=== PATIENT | female | born 1950 | race Caucasian/White ===

== ENCOUNTER → 2021-12-20 | Outpatient (CLI) | payer OTHER | LOC: MRI 12-14 11:00 | DX: H90.3 Sensorineural hearing loss, bilateral (principal); H93.12 Tinnitus, left ear | CPT/HCPCS: 36415; 70553; 82565; 84520; A9577 ==

== ENCOUNTER → 2022-04-17 | Outpatient (CLI) | payer OTHER | LOC: KOH-I 16:32 | DX: K59.00 Constipation, unspecified (principal) | CPT/HCPCS: 74018 ==

== ENCOUNTER → 2022-04-28 | Outpatient (CLI) | payer OTHER | LOC: US 08:30 | DX: D61.818 Other pancytopenia (principal); K76.0 Fatty (change of) liver, not elsewhere classified | CPT/HCPCS: 76705 ==

== ENCOUNTER → 2022-06-19 | Outpatient (CLI) | payer OTHER ==
[2022-06-19 14:42] LABS: BUN/CREATININE RATIO 20 (0-10)
[2022-06-19 15:04] LABS: HEMOGLOBIN 8.7 gm/dl (12.3-15.3); RED BLOOD COUNT 2.94 M/UL (4.00-5.10)
[2022-06-19 15:06] LABS: WHITE BLOOD COUNT 1.4 K/UL (4.5-11.0)
== END ==
LOC: OPSV 13:00
PROVIDERS: Family Medicine
DX: C92.00 Acute myeloblastic leukemia, not having achieved remission (principal)
CPT/HCPCS: 80053; 85025

== ENCOUNTER → 2022-06-30 | Outpatient (CLI) | payer OTHER ==
[2022-06-30 14:21] LABS: HEMOGLOBIN 11.1 gm/dl (12.3-15.3); RED BLOOD COUNT 3.72 M/UL (4.00-5.10); WHITE BLOOD COUNT 2.2 K/UL (4.5-11.0)
[2022-06-30 15:12] LABS: BUN/CREATININE RATIO 12 (0-10)
== END ==
LOC: LAB 13:45
PROVIDERS: Internal Medicine
DX: C92.00 Acute myeloblastic leukemia, not having achieved remission (principal)
CPT/HCPCS: 80053; 85025

== ENCOUNTER → 2022-07-04 | Outpatient (CLI) | payer OTHER ==
[~2022-07-04] VITALS: Ht 167.6 cm; Wt 78.0 kg
== END ==
LOC: OPSV 10:00
DX: C92.00 Acute myeloblastic leukemia, not having achieved remission (principal)
CPT/HCPCS: 36430; 86850; 86920; J7050; P9040

== ENCOUNTER → 2022-07-05 | Outpatient (CLI) | payer OTHER ==
[2022-07-05 15:25] LABS: HEMOGLOBIN 8.8 gm/dl (12.3-15.3); RED BLOOD COUNT 2.88 M/UL (4.00-5.10); WHITE BLOOD COUNT 7.6 K/UL (4.5-11.0)
[2022-07-05 15:26] LABS: BUN/CREATININE RATIO 14 (0-10)
== END ==
LOC: OPSV 13:52
PROVIDERS: Family Medicine
DX: C92.00 Acute myeloblastic leukemia, not having achieved remission (principal)
CPT/HCPCS: 36415; 80053; 85025

== ENCOUNTER → 2022-07-07 | Outpatient (CLI) | payer OTHER ==
[2022-07-07 11:07] LABS: HEMOGLOBIN 8.2 gm/dl (12.3-15.3); RED BLOOD COUNT 2.73 M/UL (4.00-5.10); WHITE BLOOD COUNT 6.5 K/UL (4.5-11.0)
== END ==
LOC: OPSV 09:00
PROVIDERS: Family Medicine
DX: C92.00 Acute myeloblastic leukemia, not having achieved remission (principal)
CPT/HCPCS: 85025

== ENCOUNTER → 2022-07-10 | Outpatient (CLI) | payer OTHER ==
[2022-07-10 14:33] LABS: HEMOGLOBIN 8.7 gm/dl (12.3-15.3); RED BLOOD COUNT 2.8 M/UL (4.00-5.10); WHITE BLOOD COUNT 7.7 K/UL (4.5-11.0)
== END ==
LOC: OPSV 08:00
PROVIDERS: Family Medicine
DX: C92.00 Acute myeloblastic leukemia, not having achieved remission (principal)
CPT/HCPCS: 36415; 85025; 93005

== ENCOUNTER → 2022-07-12 | Outpatient (CLI) | payer OTHER ==
[2022-07-12 14:31] LABS: HEMOGLOBIN 8.9 gm/dl (12.3-15.3); RED BLOOD COUNT 2.86 M/UL (4.00-5.10); WHITE BLOOD COUNT 6.3 K/UL (4.5-11.0)
[2022-07-12 14:48] LABS: BUN/CREATININE RATIO 15 (0-10)
== END ==
LOC: OPSV 08:00
PROVIDERS: Family Medicine
DX: C92.00 Acute myeloblastic leukemia, not having achieved remission (principal); M25.476 Effusion, unspecified foot
CPT/HCPCS: 80053; 84550; 85025

== ENCOUNTER → 2022-07-14 | Outpatient (CLI) | payer OTHER ==
[2022-07-14 07:50] LABS: HEMOGLOBIN 8.7 gm/dl (12.3-15.3); RED BLOOD COUNT 2.88 M/UL (4.00-5.10); WHITE BLOOD COUNT 7.6 K/UL (4.5-11.0)
== END ==
LOC: OPSV 07-07 13:00 → LAB 07:03
PROVIDERS: Family Medicine
DX: C92.00 Acute myeloblastic leukemia, not having achieved remission (principal)
CPT/HCPCS: 36415; 85025

== ENCOUNTER → 2022-07-17 | Outpatient (CLI) | payer OTHER ==
[2022-07-17 10:45] LABS: HEMOGLOBIN 9.3 gm/dl (12.3-15.3); RED BLOOD COUNT 2.9 M/UL (4.00-5.10); WHITE BLOOD COUNT 7.7 K/UL (4.5-11.0)
[2022-07-17 11:01] LABS: BUN/CREATININE RATIO 14 (0-10)
== END ==
LOC: LAB 10:16
PROVIDERS: Internal Medicine Medical Oncology
DX: Z53.9 Procedure and treatment not carried out, unspecified reason (principal)
CPT/HCPCS: 36415; 80053; 85025

== ENCOUNTER → 2022-07-31 | Outpatient (CLI) | payer OTHER ==
[~2022-07-31] VITALS: Ht 167.6 cm; Wt 80.7 kg
[2022-07-31 14:25] LABS: HEMOGLOBIN 7.1 gm/dl (12.3-15.3); RED BLOOD COUNT 2.18 M/UL (4.00-5.10); WHITE BLOOD COUNT 4.6 K/UL (4.5-11.0)
[2022-07-31 14:56] LABS: BUN/CREATININE RATIO 40 (0-10)
== END ==
LOC: OPSV 13:43
PROVIDERS: Family Medicine
DX: C92.00 Acute myeloblastic leukemia, not having achieved remission (principal)
CPT/HCPCS: 36591; 80053; 85025; J1642

== ENCOUNTER → 2022-08-03 | Outpatient (CLI) | payer OTHER ==
[2022-08-03 14:29] LABS: RED BLOOD COUNT 2.15 M/UL (4.00-5.10); WHITE BLOOD COUNT 6.2 K/UL (4.5-11.0)
[2022-08-03 14:49] LABS: BUN/CREATININE RATIO 33 (0-10)
== END ==
LOC: OPSV 08:00
PROVIDERS: Family Medicine
DX: C92.00 Acute myeloblastic leukemia, not having achieved remission (principal)
CPT/HCPCS: 80053; 85025; 86850; 86900; 86901; 86920; J1642; P9040

== ENCOUNTER → 2022-08-04 | Outpatient (CLI) | payer OTHER ==
[~2022-08-04] VITALS: Ht 167.6 cm; Wt 80.7 kg
== END ==
LOC: OPSV 08:00
DX: C92.10 Chronic myeloid leukemia, BCR/ABL-positive, not having achieved remission (principal)
CPT/HCPCS: 36430; P9040

== ENCOUNTER → 2022-08-07 | Outpatient (CLI) | payer OTHER ==
[2022-08-07 14:22] LABS: HEMOGLOBIN 8.8 gm/dl (12.3-15.3); RED BLOOD COUNT 2.76 M/UL (4.00-5.10); WHITE BLOOD COUNT 6.4 K/UL (4.5-11.0)
[2022-08-07 14:46] LABS: BUN/CREATININE RATIO 38 (0-10)
== END ==
LOC: OPSV 13:56
PROVIDERS: Nurse Practitioner Family
DX: C92.00 Acute myeloblastic leukemia, not having achieved remission (principal)
CPT/HCPCS: 80053; 85025

== ENCOUNTER → 2022-08-10 | Outpatient (CLI) | payer OTHER ==
[2022-08-10 15:09] LABS: RED BLOOD COUNT 2.46 M/UL (4.00-5.10); WHITE BLOOD COUNT 6.5 K/UL (4.5-11.0)
[2022-08-10 15:30] LABS: BUN/CREATININE RATIO 42 (0-10)
== END ==
LOC: OPSV 08:00
PROVIDERS: Internal Medicine
DX: C92.00 Acute myeloblastic leukemia, not having achieved remission (principal)
CPT/HCPCS: 80053; 85025